=== PATIENT | female | born 1945 | race Caucasian/White ===

== ENCOUNTER 2017-09-28 19:40 | Inpatient (IN) | payer MEDICARE, OTHER ==
[~2017-09-28] VITALS: Ht 166.4 cm; Wt 69.3 kg
--- NOTE | ~2017-09-28 | DS ---
PATIENT:ROEL GOLDEN :49 MEDICAL RECORD: [id number] DISCHARGE SUMMARY ADMISSION DATE: 09/28/17 DISCHARGE DATE: 10/02/17 This is a discharge dated 10/02/2017 from the inpatient hospital. DISCHARGE DIAGNOSES: 1. Upper GI bleed. 2. Acute blood loss anemia. 3. Melenic stools. 4. Hypotension. 5. Gastric ulcers. 6. Moderate to large hiatal hernia. 7. Low's esophagus. 8. Hypertension. 9. Hyperlipidemia. 10. Hypothyroidism. 11. Osteoarthritis. PROCEDURES THIS HOSPITALIZATION: EGD with findings of gastric ulcers, Low's appearing esophagus, small esophageal diverticulum, and a moderate to large hiatal hernia. CONSULTS THIS HOSPITALIZATION: GI with Dr. Phelps. HOSPITAL COURSE: Full H&P is located elsewhere on the chart on this 71-year-old female who was admitted through the Emergency Room with melenic stools with acute upper GI bleed with acute blood loss anemia. GI was consulted. She underwent EGD with findings as listed above. She was on a Protonix drip. Electrolytes and H&H were monitored. Electrolytes were managed by protocol. H&H was stable. Her diet was advanced to full liquids. She was transferred out of intensive care. She remained hemodynamically stable and was tolerating a diet and was considered stable for discharge on 10/02/2017. DISCHARGE MEDICATIONS: As per discharge medication reconciliation. DISCHARGE DISPOSITION: The patient is discharged home. She will continue her current diet and level of activity and will follow up with her primary care in her home [facility]. At least 30 minutes was spent in this discharge activity. TRANSINT:[id number] Voice Confirmation ID: [id number] DOCUMENT ID: [id number] Dictated By: JENNY TOM I have interviewed/examined the above patient and agree with these documented findings. DISCHARGE SUMMARY REPORT [id number] CHANTELMATEUS WILLARD MD at 1039 at 0940 CC: [id number] DICTATION DATE: 10/21/171925 CAFETERIA COOK: 10/22/17 0331 DIS IN 10/02/17 [facility] [address] [place] [address]
[2017-09-28] MEDS ORDERED: BAYER ASPIRIN325 MG PO (19:55)
[2017-09-28] MEDS ORDERED: BAYER CHEWABLE81 MG PO (19:56)
[2017-09-28] MEDS ORDERED: SYNTHROID75 MCG PO (19:56)
[2017-09-28] MEDS ORDERED: LISINOPRIL-HCTZ1 TA2 PO (19:57)
[2017-09-28] MEDS ORDERED: OMEGA 3 FISH OI1 CAP PO (19:58)
[2017-09-28] MEDS ORDERED: DESERYL100 MG PO (19:59)
[2017-09-28 20:00] VITALS: BP 111/96
[2017-09-28] MEDS ORDERED: LIPITOR10 MG PO (20:00)
[2017-09-28] MEDS ORDERED: NAPROSYN500 MG PO (20:01)
[2017-09-28 20:02] VITALS: BP 114/87; BMI 23.3
[2017-09-28 21:00] VITALS: BP 101/58
[2017-09-28 21:30] VITALS: BP 114/87
[2017-09-28 22:00] VITALS: BP 111/96
[2017-09-28 22:22] LABS: HEMATOCRIT 24.7 % (36.0-48.0); HEMOGLOBIN 8.4 g/dL (12-16)
[2017-09-28 23:00] VITALS: BP 110/95
[2017-09-29] VITALS (31 sets, daily range): BP systolic 84–133; BP diastolic 51–91; Ht 166.4 cm; Wt 69.3 kg
[2017-09-29 05:45] LABS: HEMOGLOBIN 7.5 g/dL (12-16)
[2017-09-29 15:32] LABS: CALC OSMOLALITY 283 mosm/kg (275-300); CALCIUM 8.1 mg/dL (8.5-10.1); CARBON DIOXIDE 23.2 mmol/L (21.0-32.0); CHLORIDE - SERUM 109 mmol/L (98-107); CREATININE - SERUM 0.7 mg/dL (0.6-1.3); GLUCOSE 96 mg/dL (74-106); POTASSIUM - SERUM 4.1 mmol/L (3.5-5.1); SODIUM 140 mmol/L (136-145); UREA NITROGEN 27 mg/dL (7-18); eGFR NON AFRICAN AMERICAN 88 mL/min (90-120)
[2017-09-29 15:34] LABS: HEMOGLOBIN 9.9 g/dL (12-16)
[2017-09-29 21:18] LABS: HEMATOCRIT 25.9 % (36.0-48.0); HEMOGLOBIN 8.8 g/dL (12-16)
[2017-09-30] VITALS (16 sets, daily range): BP systolic 99–136; BP diastolic 58–95
[2017-09-30 06:59] LABS: BASOPHILS 0.3 % (0-2); EOSINOPHILS 3.8 % (0-7); IMMATURE GRANULOCYTES 0.3 % (0-5); LYMPHOCYTES 30.8 % (15-50); MCH 29.3 pg (26.0-34.0); MCHC 34.3 g/dL (31.0-37.0); MCV 85.6 fL (80.0-100.0); MEAN PLATELET VOLUME 10.5 fL (7.4-10.4); MONOCYTES 7.1 % (2-11); NEUTROPHILS 57.7 % (40-80); PLATELET COUNT 141 10x3/uL (130-400); RBC 3.75 10x6/uL (4.00-5.40); RDW 13.8 % (11.5-14.5); WBC 3.9 10x3/uL (4.8-10.8)
[2017-09-30 07:03] LABS: HEMATOCRIT 32.1 % (36.0-48.0)
[2017-09-30 07:05] LABS: CALC OSMOLALITY 285 mosm/kg (275-300); CALCIUM 7.8 mg/dL (8.5-10.1); CARBON DIOXIDE 24.7 mmol/L (21.0-32.0); CHLORIDE - SERUM 111 mmol/L (98-107); CREATININE - SERUM 0.6 mg/dL (0.6-1.3); GLUCOSE 95 mg/dL (74-106); SODIUM 142 mmol/L (136-145); UREA NITROGEN 22 mg/dL (7-18); eGFR NON AFRICAN AMERICAN > 90 mL/min (90-120)
[2017-09-30 13:45] LABS: HEMATOCRIT 33.2 % (36.0-48.0); HEMOGLOBIN 11.5 g/dL (12-16)
[2017-09-30 21:44] LABS: HEMATOCRIT 30.6 % (36.0-48.0); HEMOGLOBIN 10.4 g/dL (12-16)
[2017-10-01 03:00] VITALS: BP 102/53
[2017-10-01 03:52] LABS: BASOPHILS 0.5 % (0-2); EOSINOPHILS 5.8 % (0-7); HEMATOCRIT 28.8 % (36.0-48.0); HEMOGLOBIN 9.9 g/dL (12-16); LYMPHOCYTES 32.4 % (15-50); MCH 29.4 pg (26.0-34.0); MCHC 34.4 g/dL (31.0-37.0); MCV 85.5 fL (80.0-100.0); MEAN PLATELET VOLUME 10.7 fL (7.4-10.4); MONOCYTES 9.2 % (2-11); NEUTROPHILS 52.1 % (40-80); PLATELET COUNT 169 10x3/uL (130-400); RBC 3.37 10x6/uL (4.00-5.40); RDW 14.4 % (11.5-14.5); WBC 3.8 10x3/uL (4.8-10.8)
[2017-10-01 03:58] LABS: CALC OSMOLALITY 286 mosm/kg (275-300); CALCIUM 8.5 mg/dL (8.5-10.1); CARBON DIOXIDE 25.1 mmol/L (21.0-32.0); CHLORIDE - SERUM 107 mmol/L (98-107); CREATININE - SERUM 0.7 mg/dL (0.6-1.3); GLUCOSE 102 mg/dL (74-106); POTASSIUM - SERUM 3.6 mmol/L (3.5-5.1); SODIUM 141 mmol/L (136-145); UREA NITROGEN 29 mg/dL (7-18); eGFR NON AFRICAN AMERICAN 88 mL/min (90-120)
[2017-10-01 07:00] VITALS: BP 118/82
[2017-10-01 08:40] VITALS: BP 114/87
[2017-10-01 11:00] VITALS: BP 116/84
[2017-10-01 20:29] VITALS: BP 100/58
[2017-10-02 01:05] VITALS: BP 114/69
[2017-10-02 05:58] VITALS: BP 106/47
[2017-10-02 06:43] LABS: BASOPHILS 0.3 % (0-2); HEMATOCRIT 30.6 % (36.0-48.0); HEMOGLOBIN 10.3 g/dL (12-16); IMMATURE GRANULOCYTES 0.3 % (0-5); LYMPHOCYTES 30.9 % (15-50); MCH 29.3 pg (26.0-34.0); MCHC 33.7 g/dL (31.0-37.0); MCV 86.9 fL (80.0-100.0); MEAN PLATELET VOLUME 10.5 fL (7.4-10.4); MONOCYTES 8.6 % (2-11); NEUTROPHILS 52.9 % (40-80); PLATELET COUNT 195 10x3/uL (130-400); RBC 3.52 10x6/uL (4.00-5.40); RDW 14.5 % (11.5-14.5); WBC 3.7 10x3/uL (4.8-10.8)
[2017-10-02 06:54] LABS: ANION GAP 11.4 mmol/L (8-16); CALCIUM 8.7 mg/dL (8.5-10.1); CARBON DIOXIDE 26.1 mmol/L (21.0-32.0); POTASSIUM - SERUM 3.5 mmol/L (3.5-5.1)
[2017-10-02 06:56] LABS: CREATININE - SERUM 0.9 mg/dL (0.6-1.3)
[2017-10-02 08:21] VITALS: BP 110/74
[2017-10-02] MEDS ORDERED: CARAFATE1 G/10 ML PO (13:15)
[2017-10-02] MEDS ORDERED: PROTONIX40 MG PO (13:15)
[2017-10-02 13:51] VITALS: BP 171/69
== END 2017-10-02 17:09 | disposition home or self-care (01) | DRG 378 ==
LOC: D.ICU 19:40 → D.M2 19:40
PROVIDERS: Internal Medicine Gastroenterology; Internal Medicine Nephrology
PROC: 0DB78ZX Excision of Stomach, Pylorus, Via Natural or Artificial Opening Endoscopic, Diagnostic (ICD-10-PCS; 2017-09-29)
PROC: 0DB58ZX Excision of Esophagus, Via Natural or Artificial Opening Endoscopic, Diagnostic (ICD-10-PCS; principal; 2017-09-29 16:30)
DX: K25.0 Acute gastric ulcer with hemorrhage (principal); D62 Acute posthemorrhagic anemia; K44.9 Diaphragmatic hernia without obstruction or gangrene; K22.70 Barrett's esophagus without dysplasia; K22.5 Diverticulum of esophagus, acquired; E03.9 Hypothyroidism, unspecified; I10 Essential (primary) hypertension; E78.5 Hyperlipidemia, unspecified